=== PATIENT | female | born 1985 | race Two or more races ===

== ENCOUNTER 2018-02-23 21:00 | Emergency (ER) | payer OTHER ==
[2018-02-23 21:05] VITALS: BP 136/73; PULSE 106; TEMP 98; BMI 26.9
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
[2018-02-23] MEDS ORDERED: diazePAM 5 MG TABLET PO ONE (21:36)
[2018-02-23] MEDS ORDERED: KETOROLAC TROMETHAMINE 60 MG/2 ML VIAL IM ONE (21:37)
[2018-02-23] MEDS ORDERED: diazePAM 5 MG TABLET ONE (21:39)
[2018-02-23] MEDS ORDERED: KETOROLAC TROMETHAMINE 60 MG/2 ML VIAL ONE (21:39)
[2018-02-23 22:17] LABS: URINE APPEARANCE CLOUDY; URINE BILIRUBIN NEGATIVE (<2.0 mg/dL); URINE COLOR RED; URINE GLUCOSE (UA) NEGATIVE (NEGATIVE); URINE KETONE NEGATIVE (NEGATIVE); URINE LEUK ESTERASE 1+ (NEGATIVE); URINE NITRITE NEGATIVE (NEGATIVE); URINE PROTEIN 2+ (NEGATIVE); URINE UROBILINOGEN NEGATIVE mg/dL (0.2-1.0)
[2018-02-23 22:23] LABS: URINE MUCUS RARE
[2018-02-23 22:28] LABS: EPI CELLS FEW /HPF (FEW); URINE BACTERIA 1+ /hpf (NONE SEEN)
[2018-02-23 23:12] LABS: HCG,QUALITATIVE URINE NEGATIVE
== END 2018-02-23 22:15 | disposition home or self-care (01) ==
LOC: JERFT 21:00
PROC: 3E0233Z Introduction of Anti-inflammatory into Muscle, Percutaneous Approach (ICD-10-PCS; principal; 2018-02-23)
DX: M62.830 Muscle spasm of back (principal); V59.49XA Driver of pick-up truck or van injured in collision with other motor vehicles in traffic accident, initial encounter; Y92.414 Local residential or business street as the place of occurrence of the external cause; Y93.89 Activity, other specified; Y99.8 Other external cause status
CPT/HCPCS: 81003; 81015; 84703; 99281-25

== ENCOUNTER 2018-10-08 21:30 | Emergency (ER) | payer OTHER ==
[2018-10-08 21:39] VITALS: BMI 27.3
--- NOTE | 2018-10-08 21:42 | PDOC ---
Rapid Medical Evaluation Chief Complaint: Sore Throat Time Seen by Provider: 10/08/18 21:36 Medical Evaluation: Allergies Allergy/AdvReac Type Severity Reaction Status Date / Time No Known Allergies Allergy Verified 02/23/18 21:05 10/08/18 21:37 I have performed a brief in-person evaluation of this patient. The patient presents with a chief complaint of: neck throat pain - had US last week of Thyroid, today was seen by Dr Perez today. Spiked temp of 100.7 with worsen pain to throat Pertinent physical exam findings: swelling and tender neck/ thyroid enlarged I have ordered the following: UcG, UA, labsd The patient will proceed to the ED for further evaluation. 10/08/18 21:41 10/08/18 21:43 Discharge Disposition - Diagnosis Sorethroat - Referrals - Patient Instructions - Post Discharge Activity
[2018-10-08 23:08] LABS: BASO % 0.5 % (0-2.0); EOS % 1.6 % (0-4.5); HEMATOCRIT 37.2 % (32.4-45.2); HEMOGLOBIN 12.4 GM/dL (10.7-15.3); LYMPH % 19.5 % (8-40); MCH 28.8 pg (25.7-33.7); MCHC 33.4 g/dl (32.0-36.0); MEAN CELL VOLUME 86.3 fl (80-96); MEAN PLT VOLUME 8.4 fl (7.5-11.1); MONO % 6.5 % (3.8-10.2); NEUT % 71.9 % (42.8-82.8); PLATELET COUNT 273 K/MM3 (134-434); RBC 4.32 M/mm3 (3.60-5.2); RDW 13.9 % (11.6-15.6); WHITE BLOOD COUNT 6.5 K/mm3 (4.0-10.0)
--- NOTE | 2018-10-08 23:12 | PDOC ---
*Physical Exam - Vital Signs Last Vital Signs Temp Pulse Resp BP Pulse Ox 98.8 F 99 H 18 124/64 99 10/08/18 21:36 10/08/18 21:36 10/08/18 21:36 10/08/18 21:36 10/08/18 21:36 ED Treatment Course - LABORATORY CBC & Chemistry Diagram: 10/08/18 23:00 10/09/18 00:06 Medical Decision Making - Medical Decision Making 10/08/18 23:12 Patient seen by the advanced practice provider under my direct supervision. Ancillary testing reviewed as necessary. I agree with plan as outlined by the advanced practice provider. *DC/Admit/Observation/Transfer Diagnosis at time of Disposition: Sorethroat - Referrals Referrals: Chuck Perez MD [Primary Care Provider] - - Patient Instructions - Post Discharge Activity
--- NOTE | 2018-10-08 23:14 | PDOC ---
History of Present Illness - General Chief Complaint: Sore Throat Stated Complaint: PAIN Time Seen by Provider: 10/08/18 21:36 History Source: Patient - History of Present Illness Initial Comments: 10/08/18 23:08 32 year old female c/o right sided thyroid cyst s/p ultrasound 4 days ago now with worsening swelling to right side of neck. and pain radiating to right side of face, patient currently has been on amoxicillin for 20+ days/ . today with temp of 100.8 no respiratory distress or pain. patient is scheduled to see Dr. jones advised by Dr. lee to come to the ED due to fever pmhx: none PCP: dr. lee Past History - Past Medical History Allergies/Adverse Reactions: Allergies Allergy/AdvReac Type Severity Reaction Status Date / Time No Known Allergies Allergy Verified 10/08/18 21:40 Home Medications: Ambulatory Orders NK [No Known Home Medication] 10/09/18 COPD: No - Suicide/Smoking/Psychosocial Hx Smoking History: Never smoked Review of Systems - Review of Systems Able to Perform ROS?: Yes Is the patient limited Mongolian proficient: No Constitutional: Yes: Fever. No: Symptoms Reported, See HPI, Chills, Diaphoresis , Loss of Appetite, Malaise, Night Sweats, Weakness, Weight Stable, Unintentional Wgt. Loss, Unexplained wgt Loss, Other HEENTM: Yes: Difficulty Swallowing, Other (neck pain) *Physical Exam - Vital Signs Last Vital Signs Temp Pulse Resp BP Pulse Ox 98.8 F 99 H 18 124/64 99 10/08/18 21:36 10/08/18 21:36 10/08/18 21:36 10/08/18 21:36 10/08/18 21:36 - Physical Exam General Appearance: Yes: Appropriately Dressed HEENT: positive: Other (right sided neck swelling and pain worse with swallowing and hyperextending neck) Neck: positive: Trachea midline, Tender lateral, Thyromegaly (right side) Respiratory/Chest: positive: Lungs Clear, Normal Breath Sounds Cardiovascular: positive: Tachycardia Musculoskeletal: positive: Normal Inspection Extremity: positive: Normal Capillary Refill, Normal Inspection, Normal Range of Motion Integumentary: positive: Normal Color, Dry, Warm Neurologic: positive: Fully Oriented, Alert ED Treatment Course - LABORATORY CBC & Chemistry Diagram: 10/08/18 23:10/09/18 00:06 Medical Decision Making - Medical Decision Making A: neck swelling P ;CT soft tissue labs CT neck: 3.0 x 2.8 x 2.5 cm hypodense right thyroid nodule, advise ultrasound correlation. Minimal associated leftward tracheal displacement. Small soft tissue density approximately 4 mm thick in right carotid space between the right thyroid lobe and right jugular vein/ common carotid artery as well as extending anteriorly over right thyroid lobe, question small hemorrhage versus inflamed fascial planes versus neoplastic infiltration. No soft tissue emphysema. No acute contrast extravasation. Unremarkable tonsillar fossa, epiglottis, and parotid and submandibular glands. 10/09/18 02:[address] robert barrett. i spoek tpo Dr. prieto covering Dr. jones. he differed consult to ENT reports may need to be transferred. 10/09/18 03:[address] Dennison ENT at [facility]. accepts the patient to the ED for evaluation., 10/09/18 03:45 patient pending transfer to [facility] 10/09/18 03:54 *DC/Admit/Observation/Transfer Diagnosis at time of Disposition: Localized swelling, mass and lump, neck, Neck pain on right side - Discharge Dispostion Disposition: TRANSFER ACUTE CARE/OTHER HOSP - Referrals Referrals: Chuck Lee MD [Primary Care Provider] - - Patient Instructions - Post Discharge Activity
[2018-10-08 23:16] LABS: EPI CELLS 0.2 /HPF (0-5/HPF); HYALINE CASTS 0 /lpf (0-8); PH,URINE 5.5 (5.0-8.0); URINE APPEARANCE CLEAR; URINE BACTERIA 0.7 /hpf (NEGATIVE); URINE BILIRUBIN NEGATIVE (NEGATIVE); URINE COLOR YELLOW; URINE GLUCOSE (UA) NEGATIVE (NEGATIVE); URINE KETONE NEGATIVE (NEGATIVE); URINE LEUK ESTERASE NEGATIVE (NEGATIVE); URINE NITRITE NEGATIVE (NEGATIVE); URINE PROTEIN NEGATIVE (NEGATIVE); URINE RBC 6 /hpf (0-4); URINE UROBILINOGEN 0.2 mg/dL (0.2-1.0); URINE WBC 0 /hpf (0-5)
[2018-10-08] MEDS ORDERED: KETOROLAC TROMETHAMINE 30 MG/1 ML VIAL IVPUSH ONE (23:16)
[2018-10-08 23:18] LABS: HCG,QUALITATIVE URINE Negative
[2018-10-08] MEDS ORDERED: KETOROLAC TROMETHAMINE 30 MG/1 ML VIAL ONE (23:22)
[2018-10-09 00:51] LABS: ALBUMIN 3.6 g/dl (3.4-5.0); BILIRUBIN,TOTAL 0.3 mg/dL (0.2-1); CALCIUM 8.8 mg/dL (8.5-10.1); CREATININE 0.6 mg/dL (0.55-1.3); TOT PROT 7.4 g/dl (6.4-8.2)
[2018-10-09] MEDS ORDERED: CLINDAMYCIN 600MG PREMIX IVPB 600 MG/50 ML BAG IVPB ONE ×2 (03:45→04:03)
[2018-10-09 04:34] VITALS: BP 119/88; PULSE 77; TEMP 98.3
--- NOTE | 2018-10-09 06:04 | CONSULT ---
Consultation: REQUESTING PROVIDER: ER CONSULT REQUEST: We have been asked to medically evaluate this patient for throat pain/admission assessment HISTORY OF PRESENT ILLNESS: Seen and examined; 32 y/[address] of [address] Mccain presenting with throat pain and difficulty swallowing; she is not stridorous or in respiratory distress but does appear in mild distress. Anterior neck is markedly tender with difficulty swallowing but no drooling. CT shows a 3.0x2.8x2.5cm hypodense R-thyroid nodule with L-tracheal displacement. A small soft tissue density is seen 4mm thick in the R-carotid space between the R-thyroid lobe and the R-IJ. Read as hemorrhage vs. inflamed facial planes vs. neoplasm. No ENT technology applications teacher; she was referred by her PCP to Dr. Ivey. ER reached out to his group but he wasn't on last night. Asked to assess for potential admit. REVIEW OF SYSTEMS: 10 sys ROS done and negative aside from HPI PHYSICAL EXAMINATION Vital Signs - 24 hr 10/08/18 10/09/18 10/09/18 21:36 02:33 03:28 Temperature 98.8 F Pulse Rate 99 H Pulse Rate [ 65 Radial] Respiratory 18 Rate Blood Pressure 124/64 Blood Pressure 135/73 [Left Arm] O2 Sat by Pulse 99 99 99 Oximetry (%) 10/09/18 10/09/18 04:31 04:33 Temperature 98.3 F 98.3 F Pulse Rate 77 Pulse Rate [ 77 Radial] Respiratory 15 15 Rate Blood Pressure 119/88 Blood Pressure 119/88 [Left Arm] O2 Sat by Pulse 96 Oximetry (%) GENERAL: Awake, alert, and fully oriented, in no acute distress. HEAD: Normal with no signs of trauma. EYES: Pupils equal, round and reactive to light, extraocular movements intact, sclera anicteric, conjunctiva clear. No lid lag. EARS, NOSE, THROAT: Ears normal, nares patent, oropharynx clear without exudates. Moist mucous membranes. NECK: Normal range of motion, tender and somewhat firm with minimal L-tracheal displacement. LUNGS: Breath sounds equal, clear to auscultation bilaterally. No wheezes, and no crackles. No accessory muscle use. HEART: Regular rate and rhythm, normal S1 and S2 without murmur, rub or gallop. ABDOMEN: Soft, nontender, not distended, normoactive bowel sounds, no guarding, no rebound, no masses. No hepatomegaly or splenomegaly. MUSCULOSKELETAL: Normal range of motion at all joints. No bony deformities or tenderness. No CVA tenderness. UPPER EXTREMITIES: 2+ pulses, warm, well-perfused. No cyanosis. No clubbing. Cap refill <2 seconds. No peripheral edema. LOWER EXTREMITIES: 2+ pulses, warm, well-perfused. No calf tenderness. No peripheral edema. NEUROLOGICAL: Cranial nerves II-XII intact. Normal speech. Normal gait. PSYCHIATRIC: Cooperative. Good eye contact. Appropriate mood and affect. SKIN: Warm, dry, normal turgor, no rashes or lesions noted. Laboratory Results - last 24 hr 10/08/18 10/08/18 10/08/18 23:00 23:00 23:00 WBC 6.5 RBC 4.32 Hgb 12.4 Hct 37.2 MCV 86.3 MCH 28.8 MCHC 33.4 RDW 13.9 Plt Count 273 MPV 8.4 Absolute Neuts (auto) 4.7 Neutrophils % 71.9 Lymphocytes % 19.5 Monocytes % 6.5 Eosinophils % 1.6 Basophils % 0.5 Nucleated RBC % 0 Sodium Cancelled Potassium Cancelled Chloride Cancelled Carbon Dioxide Cancelled Anion Gap Cancelled BUN Cancelled Creatinine Cancelled Est GFR (CKD-EPI)AfAm Cancelled Est GFR (CKD-EPI)NonAf Cancelled Random Glucose Cancelled Calcium Cancelled Total Bilirubin Cancelled AST Cancelled ALT Cancelled Alkaline Phosphatase Cancelled Total Protein Cancelled Albumin Cancelled TSH Cancelled Resin T3 Uptake Cancelled Urine Color Yellow Urine Appearance Clear Urine pH 5.5 Ur Specific [place] 1.014 Urine Protein Negative Urine Glucose (UA) Negative Urine Ketones Negative Urine Blood 1+ H Urine Nitrite Negative Urine Bilirubin Negative Urine Urobilinogen 0.2 Ur Leukocyte Esterase Negative Urine WBC (Auto) 0 Urine RBC (Auto) 6 Urine Casts (Auto) 0 U Epithel Cells (Auto) 0.2 Urine Bacteria (Auto) 0.7 Urine HCG, Qual Negative 10/09/18 00:06 WBC RBC Hgb Hct MCV MCH MCHC RDW Plt Count MPV Absolute Neuts (auto) Neutrophils % Lymphocytes % Monocytes % Eosinophils % Basophils % Nucleated RBC % Sodium 138 Potassium 4.0 Chloride 104 Carbon Dioxide 27 Anion Gap 7 L BUN 10.0 Creatinine 0.6 Est GFR (CKD-EPI)AfAm 137.83 Est GFR (CKD-EPI)NonAf 118.92 Random Glucose 100 Calcium 8.8 Total Bilirubin 0.3 AST 32 ALT 42 Alkaline Phosphatase 79 Total Protein 7.4 Albumin 3.6 TSH 1.95 Resin T3 Uptake Urine Color Urine Appearance Urine pH Ur Specific [place] Urine Protein Urine Glucose (UA) Urine Ketones Urine Blood Urine Nitrite Urine Bilirubin Urine Urobilinogen Ur Leukocyte Esterase Urine WBC (Auto) Urine RBC (Auto) Urine Casts (Auto) U Epithel Cells (Auto) Urine Bacteria (Auto) Urine HCG, Qual ASSESSMENT/PLAN: Patient presents to the ER with throat pain found to have a R-thyroid nodule and a 4mm soft tissue density in the R-carotid space that extends over the neck vessels and the R-thyroid lobe. Due to no ENT being available in case there was an airway or neck issue, it would not be safe to admit the patient here. As no ENT is able to be readily technology applications teacher to come in and see the patient or in case of emergency, and given the potential for complications with the aforementioned issue, we recommend transfer of the patient to facility with technology applications teacher ENT coverage. Ddx is broad. We appreciate the consultative opportunity and are happy to be called back if needed. Visit type - Emergency Visit Emergency Visit: Yes Care time: The patient presented to the Emergency Department on the above date and was hospitalized for further evaluation of their emergent condition. - New Patient This patient is new to me today: Yes Date on this admission: 10/09/18 - Critical Care Critical Care patient: No
== END 2018-10-09 04:35 | disposition short-term general hospital (02) ==
LOC: JER 21:30
PROC: 3E03329 Introduction of Other Anti-infective into Peripheral Vein, Percutaneous Approach (ICD-10-PCS; principal; 2018-10-08)
PROC: 3E0333Z Introduction of Anti-inflammatory into Peripheral Vein, Percutaneous Approach (ICD-10-PCS; 2018-10-08)
DX: R22.1 Localized swelling, mass and lump, neck (principal); M54.2 Cervicalgia; E04.1 Nontoxic single thyroid nodule; Q32.1 Other congenital malformations of trachea
CPT/HCPCS: 36415; 70491-TC; 80053; 81003; 84443; 84703; 85025; 96365; 96375; 99284-25

== ENCOUNTER 2022-03-07 04:53 | Day surgery (SDC) | payer OTHER ==
[2022-03-07 07:35] VITALS: BMI 31.6
[2022-03-07] MEDS ORDERED: ETOMIDATE 20 MG/10 ML VIAL IVPUSH ONE (08:58)
[2022-03-07 10:02] VITALS: BP 121/99; PULSE 75; RESP 15
[2022-03-07 13:02] VITALS: TEMP 97.8
== END 2022-03-07 10:29 | disposition home or self-care (01) ==
LOC: JASU-ENDO 04:53
PROVIDERS: ATTEND Internal Medicine Gastroenterology
PROC: 0DB78ZX Excision of Stomach, Pylorus, Via Natural or Artificial Opening Endoscopic, Diagnostic (ICD-10-PCS; 2022-03-07)
PROC: 0DB48ZX Excision of Esophagogastric Junction, Via Natural or Artificial Opening Endoscopic, Diagnostic (ICD-10-PCS; principal; 2022-03-07 08:45)
DX: K21.00 Gastro-esophageal reflux disease with esophagitis, without bleeding (principal); K44.9 Diaphragmatic hernia without obstruction or gangrene; K31.89 Other diseases of stomach and duodenum
CPT/HCPCS: 81025; 88305-TC; 88342-TC

== ENCOUNTER 2022-06-13 04:29 | Day surgery (SDC) | payer OTHER ==
[2022-06-08 17:48] VITALS: BMI 33.3
[2022-06-13] MEDS ORDERED: ceFAZolin SODIUM 1 GM VIAL IVPB ONE ×2 (15:24→16:20)
[2022-06-13] MEDS ORDERED: BUPIVACAINE HCL/PF 0.25% (2.5MG/ML) 10 ML VIAL IJ ONE ×3 (15:25→16:36)
[2022-06-13] MEDS ORDERED: HEPARIN NA (PORCINE) 5,000 UNITS/ML 1ML VIAL SQ ONE (15:37)
[2022-06-13] MEDS ORDERED: PROPOFOL 20 ML ONE (15:40)
[2022-06-13] MEDS ORDERED: MIDAZOLAM HCL 2 MG/2 ML SINGLE DOSE VIAL ONE (15:40)
[2022-06-13] MEDS ORDERED: BUPIVACAINE HCL/PF 0.25% (2.5MG/ML) 10 ML VIAL ONE (16:30)
[2022-06-13] MEDS ORDERED: ONDANSETRON 4 MG/2 ML VIAL ONE (16:56)
[2022-06-13] MEDS ORDERED: DEXAMETHASONE SOD PHOSPHATE 4 MG/1 ML VIAL ONE (16:56)
[2022-06-13] MEDS ORDERED: KETOROLAC TROMETHAMINE 30 MG/1 ML VIAL ONE (16:56)
[2022-06-13] MEDS ORDERED: ceFAZolin SODIUM 1 GM VIAL ONE (16:56)
[2022-06-13] MEDS ORDERED: NEOSTIGMINE METHYLSULFATE 0.5 MG/1 ML - 10 ML MDV ONE (19:35)
[2022-06-13] MEDS ORDERED: PROMETHAZINE HCL 25 MG/1 ML VIAL IVPB PRN (19:49)
[2022-06-13] MEDS ORDERED: ONDANSETRON 4 MG/2 ML VIAL IVPUSH PRN ×2 (19:49→19:52)
[2022-06-13] MEDS ORDERED: ACETAMINOPHEN 1000 MG/100 ML BAG IVPB ONE (19:50)
[2022-06-13] MEDS ORDERED: ACETAMINOPHEN INJECTION 100 ML IVPB ONE (19:50)
[2022-06-13] MEDS ORDERED: METOCLOPRAMIDE HCL INJECTION 10 MG/2 ML VIAL IVPUSH PRN (19:59)
[2022-06-13] MEDS ORDERED: LACTATED RINGERS SOLUTION 1,000 ML IV SCH (20:00)
[2022-06-13] MEDS ORDERED: IBUPROFEN 800 MG/8 ML IJ IVPB SCH (20:00)
[2022-06-13] MEDS ORDERED: SCOPOLAMINE HYDROBROMIDE 1 PATCH PATCH.TD72 TD SCH (20:00)
[2022-06-13] MEDS: LACTATED RINGERS SOLUTION 1,000 ML/1,000 ML INFUS.BAG IV SCH (21:00)
[2022-06-13] MEDS: HEPARIN NA (PORCINE) 5,000 UNITS/ML 1ML VIAL SQ SCH (23:19)
[2022-06-13] MEDS: ONDANSETRON 4 MG/2 ML VIAL IVPUSH SCH (23:19)
[2022-06-13] MEDS: oxyCODONE HCL 5 MG TABLET PO PRN (23:19)
[2022-06-14] MEDS: IBUPROFEN 800 MG/8 ML IJ IVPB SCH ×2 (03:01→09:09)
[2022-06-14] MEDS: ACETAMINOPHEN 1000 MG/100 ML BAG IVPB SCH ×2 (05:03→12:59)
[2022-06-14] MEDS: ONDANSETRON 4 MG/2 ML VIAL IVPUSH SCH ×4 (05:04→22:19)
[2022-06-14 09:02] VITALS: RESP 20
[2022-06-14] MEDS: HEPARIN NA (PORCINE) 5,000 UNITS/ML 1ML VIAL SQ SCH ×2 (09:08→21:14)
[2022-06-14] MEDS: PANTOPRAZOLE 40 MG TABLET PO SCH (09:09)
[2022-06-14 09:26] LABS: BASO % 0.3 % (0-2.0); HEMATOCRIT 36.3 % (32.4-45.2); HEMOGLOBIN 11.9 GM/dL (10.7-15.3); LYMPH % 12.8 % (8-40); MCH 27.7 pg (25.7-33.7); MCHC 32.9 g/dl (32.0-36.0); MEAN CELL VOLUME 84.3 fl (80-96); MEAN PLT VOLUME 8.2 fl (7.5-11.1); MONO % 5.2 % (3.8-10.2); NEUT % 81.7 % (42.8-82.8); PLATELET COUNT 258 10^3/uL (134-434); RBC 4.31 M/mm3 (3.60-5.2); RDW 13.5 % (11.6-15.6); WHITE BLOOD COUNT 7.9 K/mm3 (4.0-10.0)
[2022-06-14 10:23] LABS: BLOOD UREA NITROGEN 6.6 mg/dL (7-18); CALCIUM 8.8 mg/dL (8.5-10.1)
[2022-06-14 10:27] LABS: CREATININE 0.5 mg/dL (0.55-1.3)
[2022-06-14] MEDS ORDERED: IBUPROFEN 600 MG TABLET (FP) PO PRN (17:00)
[2022-06-14] MEDS: LACTATED RINGERS SOLUTION 1,000 ML/1,000 ML INFUS.BAG IV SCH ×2 (17:38→21:15)
[2022-06-14] MEDS: ACETAMINOPHEN 500 MG TABLET (FP) PO SCH (21:13)
[2022-06-14] MEDS: oxyCODONE HCL 5 MG TABLET PO PRN (22:20)
[2022-06-15] MEDS: LACTATED RINGERS SOLUTION 1,000 ML/1,000 ML INFUS.BAG IV SCH (04:24)
[2022-06-15] MEDS: ONDANSETRON 4 MG/2 ML VIAL IVPUSH SCH ×3 (04:25→18:00)
[2022-06-15] MEDS: ACETAMINOPHEN 500 MG TABLET (FP) PO SCH ×2 (04:25→14:25)
[2022-06-15] MEDS: oxyCODONE HCL 5 MG TABLET PO PRN (04:32)
[2022-06-15] MEDS: HEPARIN NA (PORCINE) 5,000 UNITS/ML 1ML VIAL SQ SCH (10:02)
[2022-06-15] MEDS: PANTOPRAZOLE 40 MG TABLET PO SCH (10:04)
[2022-06-15] MEDS ORDERED: SIMETHICONE 80 MG TAB.CHEW (FP) PO PRN (12:09)
[2022-06-15 14:26] VITALS: BP 146/77; PULSE 87; TEMP 98.5
== END 2022-06-15 19:07 | disposition home or self-care (01) ==
LOC: SUATTDRO 04:29 → JASU-SURG 04:29 → JASUSAT 04:29 → J6S 19:04 → JASUSAT 06-15 19:07
PROVIDERS: ATTEND Family Medicine
PROC: 0BQT4ZZ Repair Diaphragm, Percutaneous Endoscopic Approach (ICD-10-PCS; 2022-06-13)
PROC: 8E0W4CZ Robotic Assisted Procedure of Trunk Region, Percutaneous Endoscopic Approach (ICD-10-PCS; 2022-06-13)
PROC: 0DV44ZZ Restriction of Esophagogastric Junction, Percutaneous Endoscopic Approach (ICD-10-PCS; principal; 2022-06-13 12:40)
DX: K44.9 Diaphragmatic hernia without obstruction or gangrene (principal); K21.9 Gastro-esophageal reflux disease without esophagitis
CPT/HCPCS: 74018-TC-FY; 80048; 81025; 85025; 86850; 86900; 86901; 94010; 94760; J1644

== ENCOUNTER 2022-06-23 17:22 | Observation (INO) | payer OTHER ==
[2022-06-23 17:28] VITALS: BMI 32.5
[2022-06-23] MEDS ORDERED: SODIUM CHLORIDE 0.9% 1000 ML INFUS.BAG IV ONE ×2 (18:17→23:13)
[2022-06-23] MEDS ORDERED: ACETAMINOPHEN 1000 MG/100 ML BAG IVPB ONE (18:17)
[2022-06-23] MEDS ORDERED: ACETAMINOPHEN INJECTION 100 ML IVPB ONE (18:44)
[2022-06-23 19:46] LABS: HEMATOCRIT 40.5 % (32.4-45.2); HEMOGLOBIN 13.2 GM/dL (10.7-15.3); MCH 27.4 pg (25.7-33.7); MCHC 32.7 g/dl (32.0-36.0); MEAN CELL VOLUME 83.8 fl (80-96); MEAN PLT VOLUME 8.3 fl (7.5-11.1); PLATELET COUNT 324 10^3/uL (134-434); RBC 4.84 M/mm3 (3.60-5.2); RDW 13.7 % (11.6-15.6); WHITE BLOOD COUNT 6.6 K/mm3 (4.0-10.0)
[2022-06-23 19:55] LABS: INR 0.97 (0.83-1.09); PROTHROMBIN TIME (PATIENT) 11.2 SEC (9.7-13.0)
[2022-06-23 20:07] LABS: ALBUMIN 3.5 g/dl (3.4-5.0); BLOOD UREA NITROGEN 8.6 mg/dL (7-18); CALCIUM 8.7 mg/dL (8.5-10.1)
[2022-06-23 20:11] LABS: CREATININE 0.5 mg/dL (0.55-1.3)
[2022-06-23 20:12] LABS: BILIRUBIN,TOTAL 0.2 mg/dL (0.2-1); TOT PROT 7.3 g/dl (6.4-8.2)
[2022-06-24] MEDS ORDERED: DEXTROSE 5%-0.45% SALINE 1,000 ML IV SCH (00:30)
[2022-06-24] MEDS ORDERED: ACETAMINOPHEN INJECTION 100 ML IVPB ONE (00:49)
[2022-06-24] MEDS ORDERED: ACETAMINOPHEN 1000 MG/100 ML BAG IVPB PRN (01:00)
[2022-06-24 07:20] LABS: BASO % 0.7 % (0-2.0); EOS % 4.3 % (0-4.5); HEMATOCRIT 37.3 % (32.4-45.2); HEMOGLOBIN 12.5 GM/dL (10.7-15.3); LYMPH % 22.9 % (8-40); MCH 28.6 pg (25.7-33.7); MCHC 33.5 g/dl (32.0-36.0); MEAN CELL VOLUME 85.2 fl (80-96); MONO % 8.9 % (3.8-10.2); NEUT % 63.2 % (42.8-82.8); PLATELET COUNT 293 10^3/uL (134-434); RBC 4.38 M/mm3 (3.60-5.2); RDW 13.4 % (11.6-15.6); WHITE BLOOD COUNT 4.9 K/mm3 (4.0-10.0)
[2022-06-24 08:30] LABS: BLOOD UREA NITROGEN 4.7 mg/dL (7-18); CALCIUM 8.3 mg/dL (8.5-10.1); CREATININE 0.5 mg/dL (0.55-1.3)
[2022-06-24] MEDS ORDERED: REMDESIVIR 200 MG in SODIUM CHLORIDE 250 ML IVPB ONE (14:00)
[2022-06-24 14:52] VITALS: BP 131/47; PULSE 86; RESP 20; TEMP 98.4
== END 2022-06-24 15:39 | disposition home or self-care (01) ==
LOC: JER 17:22 → JERBED 23:14
PROVIDERS: ADMIT Internal Medicine; ATTEND Family Medicine
PROC: 3E033NZ Introduction of Analgesics, Hypnotics, Sedatives into Peripheral Vein, Percutaneous Approach (ICD-10-PCS; principal; 2022-06-23)
PROC: 3E0337Z Introduction of Electrolytic and Water Balance Substance into Peripheral Vein, Percutaneous Approach (ICD-10-PCS; 2022-06-23)
DX: K37 Unspecified appendicitis (principal); U07.1 COVID-19
CPT/HCPCS: 36415; 71260-TC; 74177-TC; 80048; 80053; 84703; 85025; 85027; 85610; 86850; 86900; 86901; 96374; 96376; 99285-25; C9803-CS; G0378; Q9967; U0003; U0005